=== PATIENT | male | born 1965 | race Hispanic/Latino ===

== ENCOUNTER 2019-01-07 09:15 | Emergency (ER) | payer BC, OTHER ==
--- NOTE | 2019-01-07 09:27 | EDM.PDOC ---
ED HPI GENERAL MEDICAL PROBLEM - General Chief Complaint: Laceration Stated Complaint: SMASHED LEFT HAND INDEX FINGER Time Seen by Provider: 01/07/19 09:24 Source of Information: Reports: Patient History Limitations: Reports: No Limitations - History of Present Illness INITIAL COMMENTS - FREE TEXT/NARRATIVE: History of present illness: []Patient crushed his left index finger with a pipe prior to arrival. He has a small laceration on the tip of the finger complains of mild numbness at the tip but is able to move finger without difficulty. Review of systems: As per history of present illness and below otherwise all systems reviewed and negative. Past medical history: As per history of present illness and as reviewed below otherwise noncontributory. Surgical history: As per history of present illness and as reviewed below otherwise noncontributory. Social history: No reported history of drug or alcohol abuse. Family history: As per history of present illness and as reviewed below otherwise noncontributory. Physical exam: General: Well developed, well nourished in NAD HEENT: Atraumatic, normocephalic, pupils reactive, negative for conjunctival pallor or scleral icterus, mucous membranes moist, throat clear, neck supple, nontender, trachea midline. Lungs: Clear to auscultation, breath sounds equal bilaterally, chest nontender. Heart: S1S2, regular, negative for clicks, rubs, or JVD. Abdomen: NABS, Soft, nondistended, nontender. Negative for masses or hepatosplenomegaly. Negative for costovertebral tenderness. Pelvis: Stable nontender. Genitourinary: Deferred. Rectal: Deferred. Extremities: 1 cm laceration lateral distal tip of the left index finger no active bleeding, able to bend and extend at the DIP as to the hand exam is normal, sensation is intact and capillary refill is brisk., negative for cords or calf pain. Neurovascular unremarkable. Neuro: Awake, alert, oriented. Cranial nerves II through XII unremarkable. Cerebellum unremarkable. Motor and sensory unremarkable throughout. Exam nonfocal. Skin:warm and dry Diagnostics: X-ray shows comminuted distal tip finger fracture Therapeutics: Digital block, Ancef IM, wound sutured ED Course: Stable Impression: Open fracture of distal tip left index finger Prescriptions: Keflex, tramadol Plan: Follow up hand surgery [place], Take meds as directed return if symptoms worsen or change. Definitive disposition and diagnosis as appropriate pending reevaluation and review of above. Left digit Pain Score (Numeric/FACES): 5 - Related Data Allergies Allergy/AdvReac Type Severity Reaction Status Date / Time No Known Allergies Allergy Verified 01/07/19 09:28 Home Meds: Home Meds cephALEXin [Keflex] 500 mg PO Q8H #21 cap 01/07/19 [Rx] traMADol HCl [Tramadol HCl] 50 mg PO Q6H PRN #20 tablet 01/07/19 [Rx] Past Medical History - Past Health History Medical/Surgical History: Denies Medical/Surgical History ED ROS GENERAL - Review of Systems Review Of Systems: See Below ED EXAM, SKIN/RASH Exam: See Below ED SKIN PROCEDURES - Laceration/Wound Repair Left fingertip Appearance: Superficial, Mildly Contaminated Distal NVT: Neuro & Vascular Intact Anesthetic Type: Digital Local Anesthesia - Lidocaine (Xylocaine): 1% Plain Local Anesthesia - Bupivicaine (Marcaine): 0.5% Plain Local Anesthetic Volume: 2cc Skin Prep: Chlorhexidine (Hibiciens) Suture Size: 5-0 Suture Type: Other (Vicryl) Drain Placement: No Tetanus Status Addressed: Yes Complications: No Course - Vital Signs Last Recorded V/S: Last Vital Signs Temp 97.3 F 01/07/19 09:28 Pulse 74 01/07/19 09:28 Resp 16 01/07/19 09:28 BP 127/79 01/07/19 09:28 Pulse Ox 97 01/07/19 09:28 - Orders/Labs/Meds Orders: Active Orders 24 hr Category Date Time Status Fingers Second Digit Rt F6 [CR] Stat Exams 01/07/19 09:32 Taken Meds: Medications Discontinued Medications Generic Name Dose Route Start Last Admin Trade Name Freq PRN Reason Stop Dose Admin Bacitracin 1 dose 01/07/19 10:37 Bacitracin Oint 1 Gm TOP 01/07/19 10:38 ONETIME ONE Bupivacaine HCl 10 ml 01/07/19 09:32 01/07/19 09:48 Sensorcaine-Mpf 0.5% INJECT 01/07/19 09:33 10 ml ONETIME ONE Administration Cefazolin Sodium 1 gm 01/07/19 09:49 01/07/19 10:09 Ancef IM 01/07/19 09:50 1 gm ONETIME ONE Administration Sterile Water Confirm 01/07/19 10:00 01/07/19 10:04 Sterile Water For Injection Administered 01/07/19 10:01 Not Given Dose 20 mls @ as directed .ROUTE .STK-MED ONE Lidocaine HCl 5 ml 01/07/19 09:32 01/07/19 09:48 Xylocaine-Mpf 1% INJECT 01/07/19 09:33 5 ml ONETIME ONE Administration Sterile Water 2.1 ml 01/07/19 10:00 01/07/19 10:09 Sterile Water For Injection INJECT 01/07/19 10:01 2.1 ml ONETIME ONE Administration Departure - Departure Time of Disposition: 10:35 Disposition: Home, Self-Care 01 Condition: Good Clinical Impression: Open fracture of phalanx of left index finger Qualifiers: Encounter type: initial encounter Phalanx: distal Fracture alignment: nondisplaced Qualified Code(s): S62.661B - Nondisplaced fracture of distal phalanx of left index finger, initial encounter for open fracture - Discharge Information *PRESCRIPTION DRUG MONITORING PROGRAM REVIEWED*: No *COPY OF PRESCRIPTION DRUG MONITORING REPORT IN PATIENT CHERYL: No Prescriptions: cephALEXin [Keflex] 500 mg PO Q8H #21 cap traMADol HCl [Tramadol HCl] 50 mg PO Q6H PRN #20 tablet PRN Reason: Pain Referrals: PCP,None [Primary Care Provider] - Forms: ED Department Discharge Additional Instructions: The following information is given to patients seen in the emergency department who are being discharged to home. This information is to outline your options for follow-up care. We provide all patients seen in our emergency department with a follow-up referral. The need for follow-up, as well as the timing and circumstances, are variable depending upon the specifics of your emergency department visit. If you don't have a primary care physician on staff, we will provide you with a referral. We always advise you to contact your personal physician following an emergency department visit to inform them of the circumstance of the visit and for follow-up with them and/or the need for any referrals to a consulting specialist. The emergency department will also refer you to a specialist when appropriate. This referral assures that you have the opportunity for follow-up care with a specialist. All of these measure are taken in an effort to provide you with optimal care, which includes your follow-up. Under all circumstances we always encourage you to contact your private physician who remains a resource for coordinating your care. When calling for follow-up care, please make the office aware that this follow-up is from your recent emergency room visit. If for any reason you are refused follow-up, please contact the [facility] Emergency Department at and asked to speak to the emergency department charge nurse. [facility] [address] [place] [address] PH:[phone] fax:[phone] - My Orders Last 24 Hours: My Active Orders 01/07/19 09:32 Fingers Second Digit Rt F6 [CR] Stat - Assessment/Plan Last 24 Hours: My Active Orders 01/07/19 09:32 Fingers Second Digit Rt F6 [CR] Stat
[2019-01-07] MEDS ORDERED: Bupivacaine 0.5% 10 ML SDV INJECT ONE (09:32)
[2019-01-07] MEDS ORDERED: ceFAZolin 1 GM Vial IM ONE (09:49)
[2019-01-07] MEDS ORDERED: Water For Injection, Sterile 50 ML SDV INJECT ONE (10:00)
[2019-01-07] MEDS ORDERED: Water For Injection, Sterile 20 ML ONE (10:00)
[2019-01-07] MEDS ORDERED: Bacitracin Oint 1 GM U/D Packet TOP ONE (10:37)
--- NOTE | 2019-01-07 10:50 | CR ---
Indication: Crush injury. Technique: Left hand 3 views. Comparison: None Findings: There is an acute comminuted and mildly displaced fracture of the left 2nd digit distal phalanx shaft. No definite extension to the DIP joint. The tuft appears intact. No dislocation. Soft tissue swelling about the distal 2nd digit. Irregularity of the nail bed. Normal alignment of the wrist. Probable old fracture of the base of the 1st digit proximal phalanx. Impression: Acute comminuted and mildly displaced fracture of the left 2nd digit distal phalanx shaft without intra-articular extension. Soft tissue swelling and irregularity of the nail bed. Dictated by Kath Munoz MD @ Jan 07 2019 10:40AM Signed by Dr. Kath Munoz @ Jan 07 2019 10:48AM
[2019-01-07 10:51] VITALS: BP 95/64; PULSE 67
== END 2019-01-07 10:51 | disposition home or self-care (01) ==
LOC: MW.ED 09:15
DX: S62.661B Nondisplaced fracture of distal phalanx of left index finger, initial encounter for open fracture (principal); W23.0XXA Caught, crushed, jammed, or pinched between moving objects, initial encounter; Y99.0 Civilian activity done for income or pay
CPT/HCPCS: 12001; 73140; 96372; 99283; J0690; J2001; J3490

== ENCOUNTER 2021-06-17 16:44 | Emergency (ER) | payer BC ==
[2021-06-17] MEDS ORDERED: Sodium Chloride 0.9% 2.5 ML Syringe FLUSH PRN (20:05)
[2021-06-17] MEDS ORDERED: Sodium Chloride 0.9% 10 ML Syringe FLUSH PRN (20:05)
[2021-06-17] MEDS ORDERED: Sodium Chloride 0.9% 1,000 ML IV ONE (20:05)
[2021-06-17] MEDS ORDERED: Ondansetron 4 MG/2 ML SDV IVPUSH ONE (20:16)
[2021-06-17] MEDS ORDERED: Ketorolac 30 MG/ML SDV IVPUSH ONE (20:16)
[2021-06-17 21:20] LABS: BLOOD UREA NITROGEN,BUN 14 mg/dL (7.0-18.0); CARBON DIOXIDE,CO2 25.7 mmol/L (21.0-32.0); CHLORIDE,CL 103 mmol/L (98-107); GLUCOSE RANDOM 101 mg/dL (74-106); LIPASE 74 U/L (73-393); POTASSIUM,K 3.9 mmol/L (3.5-5.1); SODIUM,NA 138 mmol/L (136-148)
[2021-06-17 21:37] LABS: CORONAVIRUS COVID-19 NAA POSITIVE (NEGATIVE); INFLUENZA A NAA NEGATIVE (NEGATIVE); INFLUENZA B NAA NEGATIVE (NEGATIVE)
[2021-06-17] MEDS ORDERED: Alum Hydro/Mag Hydro/Simeth XS 15 ML, Lidocaine 2% 5 ML PO ONE ×2 (21:45)
[2021-06-17 22:30] VITALS: BP 117/73; PULSE 73
== END 2021-06-17 22:41 | disposition home or self-care (01) ==
LOC: MW.ED 16:44
DX: U07.1 COVID-19 (principal)
CPT/HCPCS: 0240U; 36415; 71045; 71045-26; 80053; 81003; 83690; 85025; 93005; 96374; 96375; 99284-25; A9270-GY; J1885; J2405; J7030

== ENCOUNTER 2023-07-06 07:09 | Observation (INO) | payer OTHER, BC ==
[2023-07-06] MEDS: Sodium Chloride 0.9% 10 ML Syringe FLUSH PRN (07:42)
[2023-07-06] MEDS: Sodium Chloride 0.9% 2.5 ML Syringe FLUSH PRN (07:42)
[2023-07-06 07:49] LABS: BASOPHILS ABSOLUTE AUTO 0.05 K/uL (0.00-0.20); BASOPHILS PERCENT AUTO 0.7 % (0.0-1.0); EOSINOPHILS ABSOLUTE AUTO 0.54 K/uL (0.00-0.45); EOSINOPHILS PERCENT AUTO 7.2 % (0.0-6.0); HEMATOCRIT 44.5 % (42.0-52.0); HEMOGLOBIN 15.3 g/dL (14.0-18.0); IMMATURE GRAN ABSOLUTE AUTO 0.03 K/uL (0.00-0.05); IMMATURE GRAN PERCENT AUTO 0.4 % (0.0-0.4); LYMPHOCYTES ABSOLUTE AUTO 1.44 K/uL (1.00-4.80); LYMPHOCYTES PERCENT AUTO 19.3 % (24.0-44.0); MEAN CORPUSCULAR HEMOGLOBIN 32.5 pg (28.0-32.0); MEAN CORPUSCULAR HGB CONC 34.4 g/dL (32.0-36.0); MEAN CORPUSCULAR VOLUME 94.5 fL (83.0-99.0); MEAN PLATELET VOLUME 8.3 fL (9.4-12.4); MONOCYTES ABSOLUTE AUTO 0.47 K/uL (0.00-0.80); MONOCYTES PERCENT AUTO 6.3 % (0.0-8.0); NEUTROPHILS ABSOLUTE AUTO 4.94 K/uL (1.80-7.70); NEUTROPHILS PERCENT AUTO 66.1 % (41.0-71.0); PLATELET COUNT,PLT 252 K/uL (150-400); RED BLOOD CELL COUNT 4.71 M/uL (4.52-5.90); WHITE BLOOD CELL COUNT,WBC 7.47 K/uL (3.9-11.3)
[2023-07-06 08:04] LABS: INR 1.05 (0.86-1.11)
[2023-07-06 08:18] LABS: A/G RATIO 1.1 (0.9-1.6); ALANINE AMINOTRANSFERASE,ALT 39 IU/L (14-63); ALBUMIN 3.7 g/dL (3.4-5.0); ALKALINE PHOSPHATASE 49 U/L (46-116); ASPARTATE AMNIOTRANSFERASE,AST 29 IU/L (15-37); BILIRUBIN TOTAL 0.6 mg/dL (0.2-1.0); BLOOD UREA NITROGEN,BUN 13 mg/dL (7.0-18.0); CALCIUM 8.7 mg/dL (8.5-10.1); CARBON DIOXIDE,CO2 26.2 mmol/L (21.0-32.0); CHLORIDE,CL 105 mmol/L (98-107); CREATININE 0.8 mg/dL (0.8-1.3); ESTIMATED GFR 104 mL/min (>60); ETHANOL BLOOD MEDICAL < 3.0 mg/dL; GLUCOSE RANDOM 107 mg/dL (74-106); POTASSIUM,K 3.8 mmol/L (3.5-5.1); PROTEIN TOTAL,TP 7.2 g/dL (6.4-8.2); SODIUM,NA 141 mmol/L (136-148)
[2023-07-06] MEDS: Iopamidol 755 MG/ML 500 ML Multipack Bottle IVPUSH STA (08:30)
[2023-07-06 09:11] LABS: APPEARANCE,URINE CLEAR; BILIRUBIN,URINE NEGATIVE (NEGATIVE); COLOR,URINE YELLOW; GLUCOSE,URINE NEGATIVE (NEGATIVE); KETONES,URINE NEGATIVE (NEGATIVE); LEUKOCYTE ESTERASE,URINE NEGATIVE (NEGATIVE); NITRITE,URINE NEGATIVE (NEGATIVE); OCCULT BLOOD,URINE NEGATIVE (NEGATIVE); PROTEIN,URINE NEGATIVE (NEGATIVE); UROBILINOGEN,URINE 0.2 EU/dL (<2.0)
[2023-07-06 09:21] LABS: AMPHETAMINES SCREEN, URINE NEGATIVE (CUTOFF=500); BARBITURATE SCREEN,URINE NEGATIVE (CUTOFF=200); BENZODIAZEPINES SCREEN,URINE NEGATIVE (CUTOFF=150); BUPRENORPHINE SCREEN,URINE NEGATIVE (CUTOFF=10); METHADONE SCREEN, URINE NEGATIVE (CUTOFF=200); METHAMPHETAMINES SCREEN, URINE NEGATIVE (CUTOFF=500); OXYCODONE SCREEN,URINE NEGATIVE (CUT0FF=100); PCP SCREEN,URINE NEGATIVE (CUTOFF=25); THC SCREEN,URINE 20 NG/ML NEGATIVE (CUTOFF=50)
[2023-07-06] MEDS ORDERED: Sodium Chloride 0.9% 2.5 ML Syringe FLUSH PRN (17:38)
[2023-07-06] MEDS ORDERED: Acetaminophen 325 MG Tab PO PRN (17:38)
[2023-07-06] MEDS ORDERED: Sodium Chloride 0.9% 10 ML Syringe FLUSH PRN (17:38)
[2023-07-06] MEDS ORDERED: Ondansetron 4 MG/2 ML SDV IVPUSH PRN (17:38)
[2023-07-06] MEDS ORDERED: Naloxone 0.4 MG/ML SDV IVPUSH PRN (17:38)
[2023-07-06] MEDS ORDERED: Morphine 2 MG/ML SYRINGE IVPUSH PRN (17:38)
[2023-07-06] MEDS: Acetaminophen/HYDROcodone 325-5 MG Tab PO PRN (18:58)
[2023-07-07 09:43] LABS: BASOPHILS ABSOLUTE AUTO 0.06 K/uL (0.00-0.20); BASOPHILS PERCENT AUTO 0.8 % (0.0-1.0); EOSINOPHILS ABSOLUTE AUTO 0.53 K/uL (0.00-0.45); HEMATOCRIT 39.6 % (42.0-52.0); HEMOGLOBIN 13.8 g/dL (14.0-18.0); IMMATURE GRAN ABSOLUTE AUTO 0.01 K/uL (0.00-0.05); IMMATURE GRAN PERCENT AUTO 0.1 % (0.0-0.4); LYMPHOCYTES ABSOLUTE AUTO 1.22 K/uL (1.00-4.80); MEAN CORPUSCULAR HEMOGLOBIN 32.6 pg (28.0-32.0); MEAN CORPUSCULAR HGB CONC 34.8 g/dL (32.0-36.0); MEAN CORPUSCULAR VOLUME 93.6 fL (83.0-99.0); MEAN PLATELET VOLUME 8.3 fL (9.4-12.4); MONOCYTES ABSOLUTE AUTO 0.63 K/uL (0.00-0.80); MONOCYTES PERCENT AUTO 8.3 % (0.0-8.0); NEUTROPHILS ABSOLUTE AUTO 5.16 K/uL (1.80-7.70); NEUTROPHILS PERCENT AUTO 67.8 % (41.0-71.0); PLATELET COUNT,PLT 229 K/uL (150-400); RED BLOOD CELL COUNT 4.23 M/uL (4.52-5.90); WHITE BLOOD CELL COUNT,WBC 7.61 K/uL (3.9-11.3)
[2023-07-07 14:57] VITALS: BP 113/70; PULSE 66
== END 2023-07-07 14:55 | disposition home or self-care (01) ==
LOC: MW.ED 07:09 → OBSVTOIN 16:29 → INTOOBSV 16:29 → MW.MS 16:29
PROVIDERS: ADMIT Surgery; ATTEND Surgery
DX: S22.41XA Multiple fractures of ribs, right side, initial encounter for closed fracture (principal); F17.210 Nicotine dependence, cigarettes, uncomplicated; V43.52XA Car driver injured in collision with other type car in traffic accident, initial encounter; W22.10XA Striking against or struck by unspecified automobile airbag, initial encounter
CPT/HCPCS: 36415; 70450; 71045; 71046; 71260; 72125; 73610; 74177; 80053; 80305; 80307; 81003; 85025; 85610; 99285; A9270; G0378; J3490; Q9967; 99284

== ENCOUNTER 2024-12-29 09:22 | Emergency (ER) | payer BC ==
[2024-12-29 10:27] LABS: BASOPHILS ABSOLUTE AUTO 0.06 K/uL (0.00-0.20); BASOPHILS PERCENT AUTO 0.5 % (0.0-1.0); EOSINOPHILS ABSOLUTE AUTO 0.33 K/uL (0.00-0.45); EOSINOPHILS PERCENT AUTO 2.9 % (0.0-6.0); IMMATURE GRAN ABSOLUTE AUTO 0.04 K/uL (0.00-0.05); IMMATURE GRAN PERCENT AUTO 0.4 % (0.0-0.4); LYMPHOCYTES ABSOLUTE AUTO 1.43 K/uL (1.00-4.80); LYMPHOCYTES PERCENT AUTO 12.7 % (24.0-44.0); MEAN PLATELET VOLUME 8.2 fL (9.4-12.4); MONOCYTES ABSOLUTE AUTO 0.44 K/uL (0.00-0.80); MONOCYTES PERCENT AUTO 3.9 % (0.0-8.0); NEUTROPHILS ABSOLUTE AUTO 8.93 K/uL (1.80-7.70); NEUTROPHILS PERCENT AUTO 79.6 % (41.0-71.0); NRBC ABSOLUTE 0.00 K/uL (0.00-0.02); NRBC PERCENT 0.0 /100WBC (0.0-0.2); PLATELET COUNT,PLT 251 K/uL (150-400); RED BLOOD CELL COUNT 4.93 M/uL (4.52-5.90); WHITE BLOOD CELL COUNT,WBC 11.23 K/uL (3.9-11.3)
[2024-12-29 10:59] LABS: A/G RATIO 1.3 (0.9-1.6); ALANINE AMINOTRANSFERASE,ALT 30.0 IU/L (14-63); ASPARTATE AMNIOTRANSFERASE,AST 20.0 IU/L (15-37); BILIRUBIN TOTAL 1.5 mg/dL (0.2-1.0); BLOOD UREA NITROGEN,BUN 17.0 mg/dL (7.0-18.0); CARBON DIOXIDE,CO2 22.6 mmol/L (21.0-32.0); CHLORIDE,CL 102.0 mmol/L (98-107); CREATININE 0.9 mg/dL (0.8-1.3); EST CRCL DRUG DOSING (CG) 75.17 mL/min; GLUCOSE RANDOM 82.0 mg/dL (74-106); POTASSIUM,K 3.9 mmol/L (3.5-5.1); PROTEIN TOTAL,TP 7.5 g/dL (6.4-8.2); SODIUM,NA 138.0 mmol/L (136-148)
[2024-12-29] MEDS: Ondansetron 4 MG/2 ML SDV IVPUSH ONE (11:09)
[2024-12-29] MEDS: Ketorolac 30 MG/ML SDV IVPUSH ONE (11:09)
[2024-12-29 11:15] LABS: ESTIMATED GFR 99.0 mL/min (>60)
[2024-12-29 11:19] LABS: APPEARANCE,URINE CLEAR; GLUCOSE,URINE NEGATIVE (NEGATIVE); OCCULT BLOOD,URINE TRACE-INTACT (NEGATIVE)
[2024-12-29] MEDS: Iopamidol 755 MG/ML 500 ML Multipack Bottle IVPUSH STA (11:39)
[2024-12-29 12:12] LABS: EPITHELIAL CELLS,URINE RARE (NONE-FEW)
[2024-12-29 12:59] VITALS: BP 122/77; PULSE 78
== END 2024-12-29 12:53 | disposition home or self-care (01) ==
LOC: MW.ED 09:22
DX: R10.13 Epigastric pain (principal); R10.11 Right upper quadrant pain; R10.31 Right lower quadrant pain; E86.0 Dehydration; Z87.891 Personal history of nicotine dependence; Z75.3 Unavailability and inaccessibility of health-care facilities
CPT/HCPCS: 36415; 74174; 80053; 81001; 83690; 85025; 96361; 96374; 96375; 99285; J1885; J2405; J7030; Q9967; 99283